=== PATIENT | male | born 1955 | race Caucasian/White ===

== ENCOUNTER 2016-07-24 18:16 | Emergency (ER) | payer OTHER ==
[2016-07-24 20:03] VITALS: BP 133/83
--- NOTE | 2016-07-24 21:09 | UC ---
Throat Pain/Nasal Norm HPI - HPI Summary HPI Summary: complaint of fever and body aching that started yesterday headache denies sore throat denies cough and nasal congestion denies N/V/D hasn't taken any medication for his symptoms - History of Current Complaint Chief Complaint: UCRespiratory Stated Complaint: HEADACHED, FEVER, BODY ACHES Time Seen by Provider: 07/24/16 20:33 Hx Obtained From: Patient - Allergies/Home Medications Allergies/Adverse Reactions: Allergies Allergy/AdvReac Type Severity Reaction Status Date / Time No Known Allergies Allergy Verified 07/24/16 20:03 Home Medications: Home Medications NK [No Home Medications Reported] 07/24/16 [History Confirmed 07/24/16] PMH/Surg Hx/FS Hx/Imm Hx Previously Healthy: Yes - Surgical History Surgical History: None - Family History Known Family History: Negative: Cardiac Disease, Hypertension, Diabetes - Social History Occupation: Retired Lives: With Family Alcohol Use: Occasionally Substance Use Type: None Smoking Status (MU): Never Smoked Tobacco - Immunization History Most Recent Influenza Vaccination: none Review of Systems Constitutional: Fever, Fatigue Skin: Negative Eyes: Negative ENT: Negative Respiratory: Negative Cardiovascular: Negative Gastrointestinal: Negative Genitourinary: Negative Motor: Negative Neurovascular: Negative Musculoskeletal: Myalgia Neurological: Headache Psychological: Negative All Other Systems Reviewed And Are Negative: Yes Physical Exam Triage Information Reviewed: Yes Appearance: No Pain Distress, Well-Nourished Vital Signs: Initial Vital Signs Temp 99.2 F 07/24/16 19:59 Pulse 109 07/24/16 19:59 Resp 18 07/24/16 19:59 BP 133/83 07/24/16 19:59 Pulse Ox 99 07/24/16 19:59 Vital Signs Reviewed: Yes Eyes: Positive: Conjunctiva Clear ENT: Positive: Pharyngeal erythema, Nasal congestion, TMs normal Neck: Positive: No Lymphadenopathy Respiratory: Positive: Lungs clear, Normal breath sounds, No respiratory distress Cardiovascular: Positive: RRR, No Murmur, Pulses Normal Abdomen Description: Positive: Nontender, No Organomegaly, Soft Bowel Sounds: Positive: Present Musculoskeletal: Positive: No Edema Neurological: Positive: Alert Psychological Exam: Normal Skin Exam: Normal Throat Pain/Nasal Course/Dx - Differential Dx/Diagnosis Differential Diagnosis/HQI/PQRI: Influenza, Other - influenzalikeillness Provider Diagnoses: viral syndrome - influenzalike illness Discharge - Discharge Plan Condition: Stable Disposition: HOME Patient Education Materials: Fever in Adults (ED) Referrals: [facility] [place] [facility] REFERRAL [Outside] Additional Instructions: Increase fluids and rest Take acetaminophen or ibuprofen for fever or pain Please review your discharge instructions. If your symptoms do not improve please call your primary care provider or return to urgent care. Your blood pressure is pre-hypertensive reading. Please contact your primary care provider within 1 day -4 weeks for further evaluation.
[2016-07-24] MEDS ORDERED: Ibuprofen TAB* 400 MG PO ONE (21:10)
== END 2016-07-24 21:33 | disposition home or self-care (01) ==
LOC: UCEAST 18:16
DX: B34.9 Viral infection, unspecified (principal); J11.1 Influenza due to unidentified influenza virus with other respiratory manifestations
CPT/HCPCS: 87502; 99202; A9270-GY; G0463

== ENCOUNTER 2016-07-25 08:55 | Emergency (ER) | payer OTHER ==
[2016-07-25 09:25] VITALS: BP 147/91
--- NOTE | 2016-07-26 17:23 | UC ---
Елена Gao Claudia, [facility] on 07/25/16 at 1030 . Skin Complaint HPI - HPI Summary HPI Summary: In Room Note: 60 year old male presents to the [facility] with right lower leg swelling and redness. Pt notes that he was here yesterday for URI and possible influenza since he had intermittent fever/chills this week. Pt woke up this am with erythematous right lower leg. Pt also notes that he had a scab on the medial aspect of the right lower leg that he was scratching since Friday and he thinks that he must have gotten an infection in the area. Pt notes that he did not state the scab to the MD yesterday because it was not painful and there was no redness. Pt denies NVD, and abd pain, but does admit to fever and chills on Friday. Pt denies any aggravating or alleviating factors. Pt notes that he has never had any skin infections in the past. Pt notes that he is leaving for Friday to go to [place], [place] and is only here on vacation. Pt denies any difficulty breathing or any pain to the lower leg or any new exposure to the leg that might cause an allergy. Pt denies any previous similar Sx in the past. PMHx: Psoriasis MD Note: Vital signs stable,temp 99.2F, BP 147/91 and Pulse 93. No Rx for HTN noted. Nurse's Note: pt states that he was here yesterday with a uri. pt states he had a small reddened area to rt lower leg. pt states that he woke up today and his rt lower leg is reddened and he is shivering. pt has a small scab noted to rt outer leg. pt states that it itches sometimes. - History of Current Complaint Chief Complaint: UCLowerExtremity Stated Complaint: RED SWOLLEN LOWER LEG Hx Obtained From: Patient Onset/Duration: Sudden Onset Location: Foot (Right) - RIGHT LOWER LEG Character: Swelling, Redness Aggravating: Nothing Alleviating: Nothing Associated Signs & Symptoms: Negative: Nausea, Vomiting - Allergy/Home Medications Allergies/Adverse Reactions: Allergies Allergy/AdvReac Type Severity Reaction Status Date / Time No Known Allergies Allergy Verified 07/25/16 12:20 Review of Systems Constitutional: Negative Skin: Other - right lower leg scattered erythema Eyes: Negative ENT: Negative Respiratory: Negative Cardiovascular: Negative Gastrointestinal: Negative, Other - NO NVD, ABD PAIN Genitourinary: Negative Motor: Negative Neurovascular: Negative Musculoskeletal: Negative Neurological: Negative Psychological: Negative All Other Systems Reviewed And Are Negative: Yes PMH/Surg Hx/FS Hx/Imm Hx Previously Healthy: Yes Cardiovascular History Of: Denies: Hypertension, Myocardial Infarction - Surgical History Surgical History: None - Family History Known Family History: Negative: Cardiac Disease, Hypertension, Diabetes - Social History Occupation: Employed Full-time Lives: With Family Alcohol Use: Occasionally Substance Use Type: None Smoking Status (MU): Never Smoked Tobacco - Immunization History Most Recent Influenza Vaccination: none Physical Exam Triage Information Reviewed: Yes Vital Signs: Initial Vital Signs Temp 99.2 F 07/25/16 09:21 Pulse 93 07/25/16 09:21 Resp 18 07/25/16 09:21 BP 147/91 07/25/16 09:21 Pulse Ox 98 07/25/16 09:21 Vital Signs Reviewed: Yes - Additional Comments Appearance: well-appearing, no pain distress, well-nourished Eyes: Conjunctiva clear ENT: Hearing grossly normal, pharynx normal, TMs normal, (-) muffled/hoarse voice Neck: Supple, no lymphadenopathy Resp: Chest non-tender, lungs clear, normal breath sounds, no respiratory distress Cardio: RRR, No murmur Abd: nontender, no organomegaly, soft Bowel: Present Musc: Strength intact, HUMMEL, RIGHT LE: ON THE RIGHT LOWER LEG THERE IS SCATTERED IRREGULAR ERYTHEMA THAT LOOKS PURPURIC, IT DOES NOT ADALID AND THERE IS A LINE OF INCREASED DARKNESS ALONG THE SOCK LINE THERE ARE TWO STREAKS TO THE POSTERIOR GASTROCNEMIUS THAT LOOK MORE TYPICAL OF CELLULITIS. THERE IS A 2.5CM OVAL SCALY LESION AT THE MEDIAL DISTAL LEG. COMPARED TO THE LEFT LEG THE RIGHT LEG IS NOT SWOLLEN BUT FEELS SLIGHTLY WARMER Neuro: Alert Psych: Age appropriate behavior Skin: (-) rashes Course/Dx - Course Course Of Treatment: 60 year old healthy white male with a remote history of ankylosing spondylitis who complaints of rash to right LE, rash appears to be purpura/ecchymosis. There is no clear etiology although patient mentoned scratching his psoriasis on his lower leg and possibly causiing a skin infection. No previous episode of cellulitis. I spoke to Dr. Romano at 1105 am and the pt will proceeed by car to the ED for further evaluation. Vital signs are stable. Slightly elevated temperature. Medications have been included in the original chart and reviewed. Patient is Urgent/Emergent. BP elevated due to current condition w/o HTN in PMH - Differential Diagnoses - Skin Complaint Differential Diagnoses: Cellulitis, Drug Rash, Other - purpuric rash, non- blanching, ? blood disorder/infection. - Diagnoses Provider Diagnoses: purpuric appearing rash, right LE unclear etiology Discharge - Discharge Plan Condition: Stable Disposition: TRANS [facility] Discharge Disposition Comment: transferred to [facility] ED for bloodwork and further evaluation Referrals: No Primary Care Phys,NOPCP [Primary Care Provider] - Additional Instructions: WE DISCUSSED: Your rash is not typical of an infection. It may have another cause and needs further evaluation in the ED. The documentation as recorded by the Елена damon Claudia accurately reflects the service I personally performed and the decisions made by me, Bobby Swann MD.
== END 2016-07-25 11:22 | disposition short-term general hospital (02) ==
LOC: UCEAST 08:55
DX: D69.2 Other nonthrombocytopenic purpura (principal)
CPT/HCPCS: 99212; G0463

== ENCOUNTER 2016-07-25 11:57 | Observation (INO) | payer OTHER ==
[2016-07-25] MEDS ORDERED: NS 0.9% 1000 ML* 1,000 ML IV ONE ×2 (12:45→15:30)
[2016-07-25] MEDS ORDERED: Piperac/Tazob 3.375 gm in NS* 3.375 GM/100 ML BAG IVPB ONE (12:47)
[2016-07-25 13:00] LABS: Hematocrit 49 % (42-52); Hemoglobin 16.4 g/dl (14.0-18.0); Mean Corpuscular HGB Conc 33 g/dl (31-36); Mean Corpuscular Hemoglobin 30 pg (27-31); Mean Corpuscular Volume 90 fL (80-94); Mean Platelet Volume 9 um3 (7.4-10.4); Red Blood Count 5.48 10^6/ul (4.0-5.4); Red Cell Distribution Width 13 % (10.5-15)
[2016-07-25 13:17] LABS: Albumin 4.2 g/dL (3.2-5.2); BUN/Creatinine Ratio 14.2 (8-20); C Reactive Protein 168.29 mg/L (< 5.00); Calcium 10.1 mg/dL (8.6-10.3); EGFR African American 79.4 (>60); EGFR Non-African American 61.8 (>60); Globulin 3.9 g/dL (2-4); Potassium 3.8 mmol/L (3.5-5.0); Total Bilirubin 0.8 mg/dL (0.2-1.0); Total Protein 8.1 g/dL (6.4-8.9)
[2016-07-25 13:31] LABS: Urine Bacteria Absent (Absent); Urine Bilirubin Negative (Negative); Urine Glucose Negative (Negative); Urine Nitrite Negative (Negative)
[2016-07-25 13:53] LABS: Erythrocyte Sed Rate 35 mm/Hr (0-20)
--- NOTE | 2016-07-25 14:02 | RAD ---
INDICATION: Pain and swelling. COMPARISON: None TECHNIQUE: Duplex interrogation of the Lowerextremity was performed. FINDINGS: Deep veins: There is a segment, nonocclusive thrombus in the right common femoral vein. The age is indeterminate. The great saphenous, profunda femoris, proximal, mid, and distal deep femoral, popliteal, posterior tibial, and peroneal veins are patent. There is normal compressibility, augmentation, and phasic flow. Superficial veins: There are no findings of superficial thrombophlebitis. Popliteal fossa:There is no evidence of a popliteal cyst. Soft tissues:There are no soft tissue abnormalities. IMPRESSION: Age indeterminate nonocclusive thrombus in the right common femoral vein
[2016-07-25] MEDS ORDERED: Rivaroxaban TAB(*) 15 MG PO ONE (14:27)
[2016-07-25] MEDS ORDERED: NS 0.9% 1000 ML* 2,000 ML IV ONE (15:27)
[2016-07-25] MEDS ORDERED: Rivaroxaban TAB(*) 15 MG PO SCH (15:30)
[2016-07-25] MEDS ORDERED: NS 0.9% 1000 ML* 1,000 ML IV SCH (15:30)
--- NOTE | 2016-07-25 15:34 | ADMNOTE ---
Subjective Date of Service: 07/25/16 Interval History: ADMISSION HISTORY AND PHYSICAL EXAM: Ambulatory Orders Medication Instructions Recorded NK [No Home Medications Reported] 07/24/16 Home Medications Medication Instructions Recorded Confirmed Type NK [No Home Medications Reported] 07/24/16 07/25/16 History HPI: The patient came by air from [place] to [place] (2 legs) 1 week ago and immediately drove by car to [place]. He is visiting his brother in [place] and is accompanied by his son. On 07/23 he developed fever and chills. This AM he noted redness of his R lower leg, sl swelling. No cough, SOB, chest pain. Family History: Findings - unremarkable Social History: Findings - . is his SDM. Never smoked, no alcohol abuse. Past Medical History: Findings - Psoriasis. Review of Systems - Measurements Intake and Output: Intake and Output Last 24 Hours 07/23/16 07/24/16 07/25/16 07/26/16 06:59 06:59 06:59 06:59 Intake Total 1100 Balance 1100 Weight 220 lb 7.396 oz Intake: IV Fluids 1100 - Review of Systems Constitutional Symptoms: Negative: Weight Gain, Weight Loss, Weakness, Fatigue, Fever, Night Sweats, Unexplained Falls, Other Dermatology: Positive: Normal HEENT: Positive: Normal Eyes: Positive: Normal Thyroid: Positive: Normal Pulmonary: Positive: Normal Cardiology: Positive: Normal Gastroenterology: Positive: Anorexia Genitourinary - Male: Negative: Prostatism, Erectile Dysfunction, Family Hx of Prostate Cancer, Other Musculoskeletal: Negative: Joint Pain, Joint Stiffness, Arthritis, Osteoporosis, Low Back Pain , Sciatica, Joint Deformities, Kyphoscoliosis, Other Endocrinology: Positive: Normal Hematologic/Lymphatic: Negative: Anemia, Easy Brusing, Hx Leukemia, Hx Lymphoma, Use of Anticoagulant, Use of Antiplatelet Drugs, Other Neurology: Positive: Normal Psychiatry: Positive: Normal Allergic/Immunologic: Negative: Hx Anaphylaxis, Hx Angioedema, Hx Environmental, Hx Seasonal, Athsma, Hx HIV, Immunocompromise, Swollen Glands LymphNodes, Other Objective Active Medications: Acetaminophen (Tylenol Tab*) 650 mg PO Q4H PRN PRN Reason: TEMP GREATER THAN 101.5 F Cefuroxime Sodium 750 mg/ (Sodium Chloride) 50 mls @ 100 mls/hr IVPB Q8H KATELYN Rivaroxaban (Xarelto(*)) 15 mg PO BID KATELYN Last Admin: 07/25/16 15:21 Dose: Not Given Vital Signs 07/25/16 07/25/16 07/25/16 12:02 12:11 12:16 Temperature 100.1 F 98.4 F Pulse Rate 101 99 Respiratory 20 16 Rate Blood Pressure 155/86 143/81 143/81 (mmHg) O2 Sat by Pulse 100 99 Oximetry 07/25/16 07/25/16 07/25/16 12:18 12:30 12:46 Temperature Pulse Rate 97 96 105 Respiratory Rate Blood Pressure 134/77 (mmHg) O2 Sat by Pulse 95 98 97 Oximetry 07/25/16 07/25/16 07/25/16 12:47 12:54 13:00 Temperature 102.9 F Pulse Rate 94 Respiratory Rate Blood Pressure 134/68 145/85 (mmHg) O2 Sat by Pulse 96 Oximetry 07/25/16 07/25/16 07/25/16 13:30 14:00 14:30 Temperature Pulse Rate 98 103 97 Respiratory Rate Blood Pressure 133/72 134/75 132/72 (mmHg) O2 Sat by Pulse 96 95 97 Oximetry Oxygen Devices in Use Now: None Appearance: Alert, sitting up on ED stretcher. In fair spirits. Looks comfortable. Eyes: No Scleral Icterus Ears/Nose/Mouth/Throat: Clear Oropharnyx, Mucous Membranes Moist Neck: NL Appearance and Movements; NL JVP, No Thyroid Enlargement, Masses Respiratory: Symmetrical Chest Expansion and Respiratory Effort, Clear to Auscultation, Clear to Percussion Cardiovascular: NL Sounds; No Murmurs; No JVD, RRR, No Edema, - Abdominal: NL Sounds; No Tenderness; No Distention, No Hepatosplenomegaly, - Extremities: No Clubbing, Cyanosis, - - 1+ edema R lower leg. No calf tenderness. Skin: No Nodules or Sclerosis, - - Small psoriatic area medial L lower leg just above ankle. Dark red patches covers 75% of R lower leg. The leg is very warm but so is the rest of his body. Neurological: Alert and Oriented x 3, NL Sensation Result Diagrams: 07/25/16 12:20 07/25/16 12:20 Assess/Plan/Problems-Billing Assessment: - Patient Problems (1) DVT (deep venous thrombosis) Current Visit: Yes Status: Acute Code(s): I82.409 - ACUTE EMBOLISM AND THOMBOS UNSP DEEP VN UNSP LOWER EXTREMITY SNOMED Code(s): 968852257 Comment: In setting of prolonged air/car travel would consider this an acute DVT. Rivaroxaban started. (2) Cellulitis Current Visit: Yes Status: Acute Code(s): L03.90 - CELLULITIS, UNSPECIFIED SNOMED Code(s): 007122385 Comment: Non-blanching deep red rash. He could have developed cellulitis via the psoriatic patch R lower leg. IV cefuroxime ordered. He received pip/ billie in the ED. (3) Psoriasis Current Visit: Yes Status: Acute Code(s): L40.9 - PSORIASIS, UNSPECIFIED SNOMED Code(s): 9967745 Comment: Mild, no tx needed at present.
[2016-07-25] MEDS: Acetaminophen TAB* 325 MG PO PRN ×2 (16:47→23:56)
[2016-07-25] MEDS: ceFUROXime IV(*) 750 MG in NS 0.9% 50 ML* 50 ML IVPB SCH ×2 (16:47→23:56)
[2016-07-25] MEDS: NS 0.9% 1000 ML* 1,000 ML IV SCH (17:32)
[2016-07-25] MEDS: oxyCODONE TAB* 5 MG TAB PO PRN ×2 (17:51→23:56)
--- NOTE | 2016-07-25 18:33 | ED ---
Polly Gao Matthew, scribed for Bob Romano MD on 07/25/16 at 1318 . Lower Extremity - HPI Summary HPI Summary: A 60 y/o male presents to the ED with right lower leg swelling and redness since a week ago. The patient was transferred from [facility]. Associated symptoms include chills, fever, headache, right lower leg swelling, and rash on the right leg. No PMHx, No SHx, no smoking, no drugs, and occasional alcohol. - History of Current Complaint Chief Complaint: EDExtremityLower Stated Complaint: INFECTION RIGHT LEG Time Seen by Provider: 07/25/16 12:31 Hx Obtained From: Patient Onset/Duration: Weeks Severity Initially: Moderate Severity Currently: Moderate Pain Intensity: 7 Pain Scale Used: 0-10 Numeric Timing: Constant Associated Signs And Symptoms: Positive: Swelling - RLE, Redness - RLE, Fever, Other - Chills Able to Bear Weight: Yes - Allergies/Home Medications Allergies/Adverse Reactions: Allergies Allergy/AdvReac Type Severity Reaction Status Date / Time No Known Allergies Allergy Verified 07/25/16 12:20 PMH/Surg Hx/FS Hx/Imm Hx Previously Healthy: Yes Endocrine/Hematology History: Denies: Hx Diabetes Cardiovascular History: Denies: Hx Hypertension Infectious Disease History: No Infectious Disease History: Denies: Traveled Outside the [place] in Last 30 Days - Family History Known Family History: Negative: Cardiac Disease, Hypertension, Diabetes - Social History Alcohol Use: Occasionally Substance Use Type: Reports: None Smoking Status (MU): Never Smoked Tobacco Review of Systems Positive: Fever, Chills Eyes: Negative ENT: Negative Cardiovascular: Negative Respiratory: Negative Gastrointestinal: Negative Genitourinary: Negative Positive: Edema - RLE Skin: Other - Redness of the RLE Positive: Rash - RLE Positive: Headache Psychological: Normal All Other Systems Reviewed And Are Negative: Yes Physical Exam - Summary Physical Exam Summary: VITAL SIGNS: Reviewed. GENERAL: Patient is a well developed and nourished male who is lying comfortable in the stretcher. Patient is not in any acute respiratory distress. HEAD AND FACE: No signs of trauma. No ecchymosis, hematomas or skull depressions. No sinus tenderness. EYES: PERRLA, EOMI x 2, No injected conjunctiva, no nystagmus. EARS: Hearing grossly intact. Ear canals and tympanic membranes are within normal limits. MOUTH: Oropharynx within normal limits. NECK: Supple, trachea is midline, no adenopathy, no JVD, no carotid bruit, no c- spine tenderness, neck with full ROM. CHEST: Symmetric, no tenderness at palpation LUNGS: Clear to auscultation bilaterally. No wheezing or crackles. CVS: Regular rate and rhythm, S1 and S2 present, no murmurs or gallops appreciated. ABDOMEN: Soft, non-tender. No signs of distention. No rebound no guarding, and no masses palpated. Bowel sounds are normal. EXTREMITIES: FROM in all major joints, Positive right LE erythema with areas of ecchymosis. Positive tacking of erythema extending to the right proximal thigh. Positive tenderness at palpation. NEURO: Alert and oriented x 3. No acute neurological deficits. Speech is normal and follows commands. SKIN: Dry and warm Triage Information Reviewed: Yes Vital Signs On Initial Exam: Initial Vitals Temp Pulse Resp BP Pulse Ox 100.1 F 101 20 155/86 100 07/25/16 12:02 07/25/16 12:02 07/25/16 12:02 07/25/16 12:02 07/25/16 12:02 Vital Signs Reviewed: Yes - [place] Coma Scale Coma Scale Total: 15 Diagnostics - Vital Signs Vital Signs Temp Pulse Resp BP Pulse Ox 07/25/16 12:18 97 95 07/25/16 12:16 143/81 07/25/16 12:11 98.4 F 99 16 143/81 99 07/25/16 12:02 100.1 F 101 20 155/86 100 - Laboratory Lab Results: Lab Results 07/25/16 07/25/16 07/25/16 Range/Units 12:20 12:20 12:20 WBC 17.0 H (3.5-10.8) 10^3/ul RBC 5.48 H (4.0-5.4) 10^6/ul Hgb 16.4 (14.0-18.0) g/dl Hct 49 (42-52) % MCV 90 (80-94) fL MCH 30 (27-31) pg MCHC 33 (31-36) g/dl RDW 13 (10.5-15) % Plt Count 171 (150-450) 10^3/ul MPV 9 (7.4-10.4) um3 Neut % (Auto) 88.7 H (38-83) % Lymph % (Auto) 4.1 L (25-47) % [place] % (Auto) 7.1 (1-9) % Eos % (Auto) 0 (0-6) % Baso % (Auto) 0.1 (0-2) % Absolute Neuts (auto) 15.0 H (1.5-7.7) 10^3/ul Absolute Lymphs (auto) 0.7 L (1.0-4.8) 10^3/ul Absolute Monos (auto) 1.2 H (0-0.8) 10^3/ul Absolute Eos (auto) 0 (0-0.6) 10^3/ul Absolute Basos (auto) 0 (0-0.2) 10^3/ul Absolute Nucleated RBC 0.01 10^3/ul Nucleated RBC % 0 ESR 35 H (0-20) mm/Hr Sodium 132 L (133-145) mmol/L Potassium 3.8 (3.5-5.0) mmol/L Chloride 98 L (101-111) mmol/L Carbon Dioxide 26 (22-32) mmol/L Anion Gap 8 (2-11) mmol/L BUN 17 (6-24) mg/dL Creatinine 1.20 H (0.67-1.17) mg/dL Est GFR ( Amer) 79.4 (>60) Est GFR (Non-Af Amer) 61.8 (>60) BUN/Creatinine Ratio 14.2 (8-20) Glucose 114 H (70-100) mg/dL Lactic Acid 1.6 (0.5-2.0) mmol/L Calcium 10.1 (8.6-10.3) mg/dL Total Bilirubin 0.80 (0.2-1.0) mg/dL AST 18 (13-39) U/L ALT 16 (7-52) U/L Alkaline Phosphatase 64 (34-104) U/L C-Reactive Protein 168.29 H (< 5.00) mg/L Total Protein 8.1 (6.4-8.9) g/dL Albumin 4.2 (3.2-5.2) g/dL Globulin 3.9 (2-4) g/dL Albumin/Globulin Ratio 1.1 (1-3) Urine Color Urine Appearance Urine pH (5-9) Ur Specific [place] (1.010-1.030) Urine Protein (Negative) Urine Ketones (Negative) Urine Blood (Negative) Urine Nitrate (Negative) Urine Bilirubin (Negative) Urine Urobilinogen (Negative) Ur Leukocyte Esterase (Negative) Urine WBC (Auto) (Absent) Urine RBC (Auto) (Absent) Urine Bacteria (Absent) Urine Glucose (Negative) 07/25/16 Range/Units 12:54 WBC (3.5-10.8) 10^3/ul RBC (4.0-5.4) 10^6/ul Hgb (14.0-18.0) g/dl Hct (42-52) % MCV (80-94) fL MCH (27-31) pg MCHC (31-36) g/dl RDW (10.5-15) % Plt Count (150-450) 10^3/ul MPV (7.4-10.4) um3 Neut % (Auto) (38-83) % Lymph % (Auto) (25-47) % [place] % (Auto) (1-9) % Eos % (Auto) (0-6) % Baso % (Auto) (0-2) % Absolute Neuts (auto) (1.5-7.7) 10^3/ul Absolute Lymphs (auto) (1.0-4.8) 10^3/ul Absolute Monos (auto) (0-0.8) 10^3/ul Absolute Eos (auto) (0-0.6) 10^3/ul Absolute Basos (auto) (0-0.2) 10^3/ul Absolute Nucleated RBC 10^3/ul Nucleated RBC % ESR (0-20) mm/Hr Sodium (133-145) mmol/L Potassium (3.5-5.0) mmol/L Chloride (101-111) mmol/L Carbon Dioxide (22-32) mmol/L Anion Gap (2-11) mmol/L BUN (6-24) mg/dL Creatinine (0.67-1.17) mg/dL Est GFR ( Amer) (>60) Est GFR (Non-Af Amer) (>60) BUN/Creatinine Ratio (8-20) Glucose (70-100) mg/dL Lactic Acid (0.5-2.0) mmol/L Calcium (8.6-10.3) mg/dL Total Bilirubin (0.2-1.0) mg/dL AST (13-39) U/L ALT (7-52) U/L Alkaline Phosphatase (34-104) U/L C-Reactive Protein (< 5.00) mg/L Total Protein (6.4-8.9) g/dL Albumin (3.2-5.2) g/dL Globulin (2-4) g/dL Albumin/Globulin Ratio (1-3) Urine Color Yellow Urine Appearance Cloudy Urine pH 6.0 (5-9) Ur Specific [place] 1.014 (1.010-1.030) Urine Protein 1+(30 mg/dl) H (Negative) Urine Ketones 1+ H (Negative) Urine Blood 1+ H (Negative) Urine Nitrate Negative (Negative) Urine Bilirubin Negative (Negative) Urine Urobilinogen Negative (Negative) Ur Leukocyte Esterase Negative (Negative) Urine WBC (Auto) Trace(0-5/hpf) (Absent) Urine RBC (Auto) Trace(0-2/hpf) (Absent) Urine Bacteria Absent (Absent) Urine Glucose Negative (Negative) Result Diagrams: 07/25/16 12:20 07/25/16 12:20 Lab Statement: Any lab studies that have been ordered have been reviewed, and results considered in the medical decision making process. - Ultrasound No standard instances Ultrasound Interpretation: Positive (See Comments) - IMPRESSION: Age indeterminate nonocclusive thrombus in the right common femoral vein Ultrasound Interpretation Completed By: Radiologist Lower Extremity Course/Dx - Course Assessment/Plan: A 60 y/o male presents to the ED with right lower leg swelling and redness since a week ago. The patient was transferred from [facility]. Associated symptoms include chills, fever, headache, right lower leg swelling, and rash on the right leg. No PMHx, No SHx, no smoking, no drugs, and occasional alcohol. Blood shows WBC of 17 without bands. ESR is 35. Sodium 132, chloride is 98 creatinine is 1.20, glucose 114, c-reactive protein is 168. Urinalaysis shows 1 + ketones. US of the RLE shows a possible DVT. In the ED course, the patient was given IV fluids since the patient was dehydrated, Tylenol for fever, and Zoysn for right lower extremity cellulitis. The patient was also started on xarelto for the DVT. At this point, I discussed the case with Dr. Goodson who accepted the patient for admission. The patient is hemodynamically stable and A& Ox3. - Diagnoses Differential Diagnosis/HQI/PQRI: Positive: Bursitis, Cellulitis, Contusion, DVT , Phlebitis Provider Diagnoses: Cellulitis, DVT (deep venous thrombosis) - Physician Notifications Discussed Care of Patient With: Dr. Goodson (Hosptialist) at 14:30 -- Notified of patient's history and will admit the patinet. Discharge - Discharge Plan Condition: Stable Disposition: ADMITTED TO [facility] The documentation as recorded by the Polly damon Matthew accurately reflects the service I personally performed and the decisions made by me, Bob Romano MD.
[2016-07-25] MEDS: Rivaroxaban TAB(*) 15 MG PO SCH (21:46)
[2016-07-26] MEDS ORDERED: Ibuprofen TAB* 400 MG PO PRN (00:28)
--- NOTE | 2016-07-26 08:47 | PN ---
Subjective Date of Service: 07/26/16 Interval History: Pain R lower leg worse today. Still a little dizzy when he walks. No more sweats or chills. Family History: Findings - unremarkable Social History: Findings - . is his SDM. Never smoked, no alcohol abuse. Past Medical History: Findings - Psoriasis. Objective Active Medications: Acetaminophen (Tylenol Tab*) 650 mg PO Q4H PRN PRN Reason: TEMP GREATER THAN 101.5 F Last Admin: 07/25/16 23:56 Dose: 650 mg Cefuroxime Sodium 750 mg/ (Sodium Chloride) 50 mls @ 100 mls/hr IVPB Q8H [facility] Last Admin: 07/25/16 23:56 Dose: 100 mls/hr Sodium Chloride (Ns 0.9% 1000 Ml*) 1,000 mls @ 100 mls/hr IV PER RATE [facility] Last Admin: 07/25/16 17:32 Dose: 100 mls/hr Ibuprofen (Motrin Tab*) 400 mg PO Q6H PRN PRN Reason: FEVER/PAIN Oxycodone HCl (Roxycodone Tab*) 5 mg PO Q3H PRN PRN Reason: PAIN - MODERATE TO SEVERE Last Admin: 07/25/16 23:56 Dose: 5 mg Rivaroxaban (Xarelto(*)) 15 mg PO BID [facility] Last Admin: 07/25/16 21:46 Dose: 15 mg Vital Signs 07/25/16 07/25/16 07/25/16 15:00 15:37 15:57 Temperature 101.7 F Pulse Rate 103 103 103 Respiratory 18 Rate Blood Pressure 130/81 141/84 141/84 (mmHg) O2 Sat by Pulse 97 97 Oximetry 07/25/16 07/25/16 07/25/16 16:10 17:51 19:32 Temperature 100.2 F Pulse Rate 102 Respiratory 22 22 20 Rate Blood Pressure 138/59 (mmHg) O2 Sat by Pulse 97 Oximetry 07/25/16 07/25/16 07/26/16 23:50 23:56 01:30 Temperature 99.7 F Pulse Rate 100 Respiratory 16 16 Rate Blood Pressure 132/66 (mmHg) O2 Sat by Pulse 95 Oximetry 07/26/16 07/26/16 07/26/16 01:56 04:04 08:01 Temperature 100.1 F 100.1 F Pulse Rate 85 89 Respiratory 15 16 18 Rate Blood Pressure 141/62 113/54 (mmHg) O2 Sat by Pulse 96 97 Oximetry Oxygen Devices in Use Now: None Appearance: Supine in bed, alert. Looks uncomfortable. Eyes: No Scleral Icterus Extremities: No Clubbing, Cyanosis, - - 1-2+ edema R lower leg, about the same as yesterday. Red areas confined to inked margins, less red more brown today. Strong R DP pulse. Neurological: Alert and Oriented x 3, NL Sensation Result Diagrams: 07/25/16 12:20 07/25/16 12:20 Additional Lab and Data: Lab Results 07/25/16 07/25/16 07/25/16 Range/Units 12:20 12:20 12:20 WBC 17.0 H (3.5-10.8) 10^3/ul RBC 5.48 H (4.0-5.4) 10^6/ul Hgb 16.4 (14.0-18.0) g/dl Hct 49 (42-52) % MCV 90 (80-94) fL MCH 30 (27-31) pg MCHC 33 (31-36) g/dl RDW 13 (10.5-15) % Plt Count 171 (150-450) 10^3/ul MPV 9 (7.4-10.4) um3 Neut % (Auto) 88.7 H (38-83) % Lymph % (Auto) 4.1 L (25-47) % [place] % (Auto) 7.1 (1-9) % Eos % (Auto) 0 (0-6) % Baso % (Auto) 0.1 (0-2) % Absolute Neuts (auto) 15.0 H (1.5-7.7) 10^3/ul Absolute Lymphs (auto) 0.7 L (1.0-4.8) 10^3/ul Absolute Monos (auto) 1.2 H (0-0.8) 10^3/ul Absolute Eos (auto) 0 (0-0.6) 10^3/ul Absolute Basos (auto) 0 (0-0.2) 10^3/ul Absolute Nucleated RBC 0.01 10^3/ul Nucleated RBC % 0 ESR 35 H (0-20) mm/Hr Sodium 132 L (133-145) mmol/L Potassium 3.8 (3.5-5.0) mmol/L Chloride 98 L (101-111) mmol/L Carbon Dioxide 26 (22-32) mmol/L Anion Gap 8 (2-11) mmol/L BUN 17 (6-24) mg/dL Creatinine 1.20 H (0.67-1.17) mg/dL Est GFR ( Amer) 79.4 (>60) Est GFR (Non-Af Amer) 61.8 (>60) BUN/Creatinine Ratio 14.2 (8-20) Glucose 114 H (70-100) mg/dL Lactic Acid 1.6 (0.5-2.0) mmol/L Calcium 10.1 (8.6-10.3) mg/dL Total Bilirubin 0.80 (0.2-1.0) mg/dL AST 18 (13-39) U/L ALT 16 (7-52) U/L Alkaline Phosphatase 64 (34-104) U/L C-Reactive Protein 168.29 H (< 5.00) mg/L Total Protein 8.1 (6.4-8.9) g/dL Albumin 4.2 (3.2-5.2) g/dL Globulin 3.9 (2-4) g/dL Albumin/Globulin Ratio 1.1 (1-3) Urine Color Urine Appearance Urine pH (5-9) Ur Specific [place] (1.010-1.030) Urine Protein (Negative) Urine Ketones (Negative) Urine Blood (Negative) Urine Nitrate (Negative) Urine Bilirubin (Negative) Urine Urobilinogen (Negative) Ur Leukocyte Esterase (Negative) Urine WBC (Auto) (Absent) Urine RBC (Auto) (Absent) Urine Bacteria (Absent) Urine Glucose (Negative) 07/25/16 Range/Units 12:54 WBC (3.5-10.8) 10^3/ul RBC (4.0-5.4) 10^6/ul Hgb (14.0-18.0) g/dl Hct (42-52) % MCV (80-94) fL MCH (27-31) pg MCHC (31-36) g/dl RDW (10.5-15) % Plt Count (150-450) 10^3/ul MPV (7.4-10.4) um3 Neut % (Auto) (38-83) % Lymph % (Auto) (25-47) % [place] % (Auto) (1-9) % Eos % (Auto) (0-6) % Baso % (Auto) (0-2) % Absolute Neuts (auto) (1.5-7.7) 10^3/ul Absolute Lymphs (auto) (1.0-4.8) 10^3/ul Absolute Monos (auto) (0-0.8) 10^3/ul Absolute Eos (auto) (0-0.6) 10^3/ul Absolute Basos (auto) (0-0.2) 10^3/ul Absolute Nucleated RBC 10^3/ul Nucleated RBC % ESR (0-20) mm/Hr Sodium (133-145) mmol/L Potassium (3.5-5.0) mmol/L Chloride (101-111) mmol/L Carbon Dioxide (22-32) mmol/L Anion Gap (2-11) mmol/L BUN (6-24) mg/dL Creatinine (0.67-1.17) mg/dL Est GFR ( Amer) (>60) Est GFR (Non-Af Amer) (>60) BUN/Creatinine Ratio (8-20) Glucose (70-100) mg/dL Lactic Acid (0.5-2.0) mmol/L Calcium (8.6-10.3) mg/dL Total Bilirubin (0.2-1.0) mg/dL AST (13-39) U/L ALT (7-52) U/L Alkaline Phosphatase (34-104) U/L C-Reactive Protein (< 5.00) mg/L Total Protein (6.4-8.9) g/dL Albumin (3.2-5.2) g/dL Globulin (2-4) g/dL Albumin/Globulin Ratio (1-3) Urine Color Yellow Urine Appearance Cloudy Urine pH 6.0 (5-9) Ur Specific [place] 1.014 (1.010-1.030) Urine Protein 1+(30 mg/dl) H (Negative) Urine Ketones 1+ H (Negative) Urine Blood 1+ H (Negative) Urine Nitrate Negative (Negative) Urine Bilirubin Negative (Negative) Urine Urobilinogen Negative (Negative) Ur Leukocyte Esterase Negative (Negative) Urine WBC (Auto) Trace(0-5/hpf) (Absent) Urine RBC (Auto) Trace(0-2/hpf) (Absent) Urine Bacteria Absent (Absent) Urine Glucose Negative (Negative) Assess/Plan/Problems-Billing Assessment: - Patient Problems (1) DVT (deep venous thrombosis) Current Visit: Yes Status: Acute Code(s): I82.409 - ACUTE EMBOLISM AND THOMBOS UNSP DEEP VN UNSP LOWER EXTREMITY SNOMED Code(s): 169205112 Comment: In setting of prolonged air/car travel would consider this an acute DVT. Continue rivaroxaban. (2) Cellulitis Current Visit: Yes Status: Acute Code(s): L03.90 - CELLULITIS, UNSPECIFIED SNOMED Code(s): 447299126 Comment: Non-blanching deep red rash. He could have developed cellulitis via the psoriatic patch R lower leg. IV cefuroxime ordered. He received pip/ billie in the ED. Visually somewhat better 07/26, no extension, color less red more brown. More tender. Strong DP pulse. ANCA, RYLIE, hep B&C, HIV Ab ordered. Start prednisone in addition to cefuroxime. Discussed with Dr. Gay 07/26. (3) Psoriasis Current Visit: Yes Status: Acute Code(s): L40.9 - PSORIASIS, UNSPECIFIED SNOMED Code(s): 2291075 Comment: Mild, no tx needed at present.
[2016-07-26] MEDS: ceFUROXime IV(*) 750 MG in NS 0.9% 50 ML* 50 ML IVPB SCH ×2 (08:49→17:16)
[2016-07-26] MEDS: oxyCODONE TAB* 5 MG TAB PO PRN (08:50)
[2016-07-26] MEDS: Rivaroxaban TAB(*) 15 MG PO SCH ×2 (08:50→21:09)
[2016-07-26 09:29] LABS: Hematocrit 43 % (42-52); Hemoglobin 14.5 g/dl (14.0-18.0); Mean Corpuscular HGB Conc 34 g/dl (31-36); Mean Corpuscular Hemoglobin 31 pg (27-31); Mean Corpuscular Volume 90 fL (80-94); Mean Platelet Volume 9 um3 (7.4-10.4); Red Blood Count 4.74 10^6/ul (4.0-5.4); Red Cell Distribution Width 13 % (10.5-15); White Blood Count 12.8 10^3/ul (3.5-10.8)
--- NOTE | 2016-07-26 09:29 | PN ---
Progress Note - Progress Note Note: Time spent on patient care 50 minutes.
[2016-07-26 09:47] LABS: Calcium 8.6 mg/dL (8.6-10.3); EGFR Non-African American 76.2 (>60); Potassium 3.6 mmol/L (3.5-5.0)
[2016-07-26] MEDS: NS 0.9% 1000 ML* 1,000 ML IV SCH ×3 (09:54→21:09)
[2016-07-26] MEDS: predniSONE TAB* 10 MG PO SCH (10:21)
--- NOTE | 2016-07-26 10:34 | RAD ---
INDICATION: Diffuse cellulitis. Evaluate for abscess. COMPARISON: Venous duplex examination July 25, 2016 TECHNIQUE: Transverse and longitudinal scans of the right lower extremity were performed utilizing grayscale and color Doppler imaging. FINDINGS: There is diffuse edematous change about the lower extremity at the level of the mid and distal calf consistent with clinical history of cellulitis. There is no localized abscess IMPRESSION: SOFT TISSUE EDEMA AT THE LEVEL THE CALF BUT NO EVIDENCE OF FOCAL FLUID COLLECTION TO SUGGEST ABSCESS.
--- NOTE | 2016-07-26 12:51 | CONS ---
CONSULTATION REPORT: DATE OF CONSULT: 07/26/16 REQUESTING PHYSICIAN: Dr. Hobbs CONSULTING SERVICE: Infectious Disease. REASON FOR CONSULTATION: Right leg rash and DVT. IMPRESSION: Nonblanching erythematous patchy rash, right lower extremity, which appears consistent with a small vessel vasculitis, it is unilateral and he does have psoriasis plaque adjacent to that area raising the question of atypical presentation of a bacterial cellulitis. DIFFERENTIAL DIAGNOSES: Includes: 1. Systemic cause of vasculitis which includes hepatitis B, hepatitis C, HIV, ANCA or RYLIE associate d. He does have a right lower extremity clot, which raises the question that it is related to throm bosis. 2. Fever, anorexia and leukocytosis related to problem #1. 3. CRP of 170. RECOMMENDATION: I agree with cephalosporin, given worsening pain, I think a corticosteroid is reaso nable. We will check HIV, hepatitis B, surface antigen, hepatitis C antibody, ANCA, RYLIE. HISTORY OF PRESENT ILLNESS: This is a 60-year-old man who recently flew here from [facility], had a ca r ride from [place]. On Friday, he developed right leg pain and swelling. He had been here a few days. He has been visiting an uncle here. No time outdoors. Because of the leg pain, he came to [facility] ER. He knows he had been anorexic since that time and was noted to have a fever of 102. An ultr asound of the right leg showed nonocclusive thrombus in the right common femoral vein. He was start ed on anticoagulation. He does have small plaques with psoriasis and he noted he was itching one on his right ankle more than the left in the 2 to 3 days before he came to the hospital. The rash dev eloped about the same time as the swelling. When he got here, his white count was 17,000. He was s tarted on Zosyn and switched to cefuroxime. Today, he has more swelling and the pain in the leg is about the same. It is not worse with weightbearing. It is worse with touching the area of the rash . He has never had anything like this before and his left leg has been fine. PAST MEDICAL HISTORY: None. MEDICATIONS: 1. Tylenol. 2. Cefuroxime. 3. Rivaroxaban. 4. Oxycodone. FAMILY HISTORY: No recurrent infections. SOCIAL HISTORY: He lives in [facility]. 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 No new partners. He is , traveling here with his son. REVIEW OF SYSTEMS: All negative except as noted above. PHYSICAL EXAM: Vital Signs: Temperature is 37.8, heart rate 80, respiratory rate 18, blood pressur e 113/54, O2 sat 97% on room air. In general, he is awake, not in distress. Neurologic: He is gisella ented x3. He follows commands. He moves all extremities. HEENT: There is no conjunctival hemorrh age. Oropharynx without lesions. Neck is supple without nuchal rigidity. Lymph Nodes: There is n o cervical, supraclavicular, inguinal, axillary, or epitrochlear lymphadenopathy. Heart is regular r ate and rhythm without murmurs, rubs, or gallops. Lungs are clear to auscultation bilaterally. Abd omen is soft, nontender, and nondistended. Skin: In the right lower extremity, there is diffuse lynne ma from the thigh down to the ankle. There is 2+ dorsalis pedis pulse. There is patchy erythema, v iolaceous rash between the mid calf and ankle circumferential. Some areas are dark or purple. It i s all nonblanching and tender. It is nonpalpable. DIAGNOSTIC STUDIES/LAB DATA: White blood cell count 17, hemoglobin 16, platelets 171. Creatinine 1 .2, CRP 170, lactic acid 1. Please see impressions and recommendations outlined above, which I discussed with Dr. Hobbs. Thank you for asking me to see Mr. Hearn in consultation. [id number]/[facility] #: [id number]
[2016-07-27] MEDS: ceFUROXime IV(*) 750 MG in NS 0.9% 50 ML* 50 ML IVPB SCH ×2 (00:14→08:43)
--- NOTE | 2016-07-27 08:40 | DCNOTE ---
Subjective Date of Service: 07/27/16 Interval History: Pain R leg much better, not using any analgesic. Walks OK. No sweats, chills. Appetite good. No new c/o. Family History: Findings - unremarkable Social History: Findings - . is his SDM. Never smoked, no alcohol abuse. Past Medical History: Findings - Psoriasis. Objective Active Medications: Acetaminophen (Tylenol Tab*) 650 mg PO Q4H PRN PRN Reason: TEMP GREATER THAN 101.5 F Last Admin: 07/25/16 23:56 Dose: 650 mg Cefuroxime Sodium 750 mg/ (Sodium Chloride) 50 mls @ 100 mls/hr IVPB Q8H [facility] Last Admin: 07/27/16 00:14 Dose: 100 mls/hr Sodium Chloride (Ns 0.9% 1000 Ml*) 1,000 mls @ 100 mls/hr IV PER RATE [facility] Last Admin: 07/26/16 21:09 Dose: 100 mls/hr Ibuprofen (Motrin Tab*) 400 mg PO Q6H PRN PRN Reason: FEVER/PAIN Oxycodone HCl (Roxycodone Tab*) 5 mg PO Q3H PRN PRN Reason: PAIN - MODERATE TO SEVERE Last Admin: 07/26/16 08:50 Dose: 5 mg Prednisone (Deltasone Tab*) 60 mg PO DAILY [facility] Last Admin: 07/26/16 10:21 Dose: 60 mg Rivaroxaban (Xarelto(*)) 15 mg PO BID [facility] Last Admin: 07/26/16 21:09 Dose: 15 mg Vital Signs 07/26/16 07/26/16 07/26/16 08:50 10:00 12:51 Temperature 99.6 F Pulse Rate 92 Respiratory 16 16 Rate Blood Pressure 139/72 (mmHg) O2 Sat by Pulse 98 Oximetry 07/26/16 07/26/16 07/26/16 19:49 20:00 21:13 Temperature 98.8 F Pulse Rate 84 Respiratory 16 20 20 Rate Blood Pressure 123/73 (mmHg) O2 Sat by Pulse 96 Oximetry 07/26/16 07/27/16 23:13 03:16 Temperature 97.9 F 98.3 F Pulse Rate 84 85 Respiratory 16 16 Rate Blood Pressure 105/55 123/80 (mmHg) O2 Sat by Pulse 98 96 Oximetry Oxygen Devices in Use Now: None Appearance: Alert, sitting on the edge of the bed. In good spirits. Looks comfortable . Eyes: No Scleral Icterus Extremities: No Clubbing, Cyanosis, - - Tr edema R leg. R leg no longer warmer than L leg. Skin: No Rash or Ulcers - Red areas slowly improving. Black area R lateral/ posterior leg just above the ankle about the same as yesterday. New black area with 2-3 cm [id number] fluid collection R lower leg medial just below knee. No tenderness. , No Nodules or Sclerosis Result Diagrams: 07/26/16 09:05 07/26/16 09:05 Additional Lab and Data: Lab Results 07/25/16 07/25/16 07/25/16 Range/Units 12:20 12:20 12:20 WBC 17.0 H (3.5-10.8) 10^3/ul RBC 5.48 H (4.0-5.4) 10^6/ul Hgb 16.4 (14.0-18.0) g/dl Hct 49 (42-52) % MCV 90 (80-94) fL MCH 30 (27-31) pg MCHC 33 (31-36) g/dl RDW 13 (10.5-15) % Plt Count 171 (150-450) 10^3/ul MPV 9 (7.4-10.4) um3 Neut % (Auto) 88.7 H (38-83) % Lymph % (Auto) 4.1 L (25-47) % [place] % (Auto) 7.1 (1-9) % Eos % (Auto) 0 (0-6) % Baso % (Auto) 0.1 (0-2) % Absolute Neuts (auto) 15.0 H (1.5-7.7) 10^3/ul Absolute Lymphs (auto) 0.7 L (1.0-4.8) 10^3/ul Absolute Monos (auto) 1.2 H (0-0.8) 10^3/ul Absolute Eos (auto) 0 (0-0.6) 10^3/ul Absolute Basos (auto) 0 (0-0.2) 10^3/ul Absolute Nucleated RBC 0.01 10^3/ul Nucleated RBC % 0 ESR 35 H (0-20) mm/Hr Sodium 132 L (133-145) mmol/L Potassium 3.8 (3.5-5.0) mmol/L Chloride 98 L (101-111) mmol/L Carbon Dioxide 26 (22-32) mmol/L Anion Gap 8 (2-11) mmol/L BUN 17 (6-24) mg/dL Creatinine 1.20 H (0.67-1.17) mg/dL Est GFR ( Amer) 79.4 (>60) Est GFR (Non-Af Amer) 61.8 (>60) BUN/Creatinine Ratio 14.2 (8-20) Glucose 114 H (70-100) mg/dL Lactic Acid 1.6 (0.5-2.0) mmol/L Calcium 10.1 (8.6-10.3) mg/dL Total Bilirubin 0.80 (0.2-1.0) mg/dL AST 18 (13-39) U/L ALT 16 (7-52) U/L Alkaline Phosphatase 64 (34-104) U/L C-Reactive Protein 168.29 H (< 5.00) mg/L Total Protein 8.1 (6.4-8.9) g/dL Albumin 4.2 (3.2-5.2) g/dL Globulin 3.9 (2-4) g/dL Albumin/Globulin Ratio 1.1 (1-3) Urine Color Urine Appearance Urine pH (5-9) Ur Specific [place] (1.010-1.030) Urine Protein (Negative) Urine Ketones (Negative) Urine Blood (Negative) Urine Nitrate (Negative) Urine Bilirubin (Negative) Urine Urobilinogen (Negative) Ur Leukocyte Esterase (Negative) Urine WBC (Auto) (Absent) Urine RBC (Auto) (Absent) Urine Bacteria (Absent) Urine Glucose (Negative) 07/25/16 Range/Units 12:54 WBC (3.5-10.8) 10^3/ul RBC (4.0-5.4) 10^6/ul Hgb (14.0-18.0) g/dl Hct (42-52) % MCV (80-94) fL MCH (27-31) pg MCHC (31-36) g/dl RDW (10.5-15) % Plt Count (150-450) 10^3/ul MPV (7.4-10.4) um3 Neut % (Auto) (38-83) % Lymph % (Auto) (25-47) % [place] % (Auto) (1-9) % Eos % (Auto) (0-6) % Baso % (Auto) (0-2) % Absolute Neuts (auto) (1.5-7.7) 10^3/ul Absolute Lymphs (auto) (1.0-4.8) 10^3/ul Absolute Monos (auto) (0-0.8) 10^3/ul Absolute Eos (auto) (0-0.6) 10^3/ul Absolute Basos (auto) (0-0.2) 10^3/ul Absolute Nucleated RBC 10^3/ul Nucleated RBC % ESR (0-20) mm/Hr Sodium (133-145) mmol/L Potassium (3.5-5.0) mmol/L Chloride (101-111) mmol/L Carbon Dioxide (22-32) mmol/L Anion Gap (2-11) mmol/L BUN (6-24) mg/dL Creatinine (0.67-1.17) mg/dL Est GFR ( Amer) (>60) Est GFR (Non-Af Amer) (>60) BUN/Creatinine Ratio (8-20) Glucose (70-100) mg/dL Lactic Acid (0.5-2.0) mmol/L Calcium (8.6-10.3) mg/dL Total Bilirubin (0.2-1.0) mg/dL AST (13-39) U/L ALT (7-52) U/L Alkaline Phosphatase (34-104) U/L C-Reactive Protein (< 5.00) mg/L Total Protein (6.4-8.9) g/dL Albumin (3.2-5.2) g/dL Globulin (2-4) g/dL Albumin/Globulin Ratio (1-3) Urine Color Yellow Urine Appearance Cloudy Urine pH 6.0 (5-9) Ur Specific [place] 1.014 (1.010-1.030) Urine Protein 1+(30 mg/dl) H (Negative) Urine Ketones 1+ H (Negative) Urine Blood 1+ H (Negative) Urine Nitrate Negative (Negative) Urine Bilirubin Negative (Negative) Urine Urobilinogen Negative (Negative) Ur Leukocyte Esterase Negative (Negative) Urine WBC (Auto) Trace(0-5/hpf) (Absent) Urine RBC (Auto) Trace(0-2/hpf) (Absent) Urine Bacteria Absent (Absent) Urine Glucose Negative (Negative) Assess/Plan/Problems-Billing Assessment: - Patient Problems (1) DVT (deep venous thrombosis) Current Visit: Yes Status: Acute Code(s): I82.409 - ACUTE EMBOLISM AND THOMBOS UNSP DEEP VN UNSP LOWER EXTREMITY SNOMED Code(s): 595375479 Comment: In setting of prolonged air/car travel would consider this an acute DVT. Continue rivaroxaban. Pt instructed to get rx for 20 mg dose rivaroxaban from his PCP in [place]. (2) Cellulitis Current Visit: Yes Status: Acute Code(s): L03.90 - CELLULITIS, UNSPECIFIED SNOMED Code(s): 476541528 Comment: Non-blanching deep red rash. He could have developed cellulitis via the psoriatic patch R lower leg. IV cefuroxime ordered. He received pip/ billie in the ED. Rash slowly improving. Pain virutally gone. No longer warmer than L leg. Edema virtually gone ANCA, RYLIE pending. Hep B&C neg. HIV Ab ordered. Continue prednisone in addition to cefuroxime. Discussed with Dr. Gay 07/26. (3) Psoriasis Current Visit: Yes Status: Acute Code(s): L40.9 - PSORIASIS, UNSPECIFIED SNOMED Code(s): 0355534 Comment: Mild, no tx needed at present. Status and Disposition: Discharge now. Pt will return home tomorrow, will arrive in [place] Friday AM and call his PCP promptly.
[2016-07-27] MEDS: predniSONE TAB* 10 MG PO SCH (08:43)
[2016-07-27] MEDS: Rivaroxaban TAB(*) 15 MG PO SCH (08:44)
[2016-07-27 10:22] VITALS: BP 134/83
== END 2016-07-27 09:35 | disposition home or self-care (01) ==
LOC: ED 11:57 → MED 14:39
PROVIDERS: ADMIT Hospitalist; ATTEND Internal Medicine
DX: I82.411 Acute embolism and thrombosis of right femoral vein (principal); L03.115 Cellulitis of right lower limb; L40.9 Psoriasis, unspecified
CPT/HCPCS: 36415; 80048; 80053; 81003; 81015; 83516; 83605; 85025; 85652; 86038; 86140; 86703; 86803; 87040; 87340; 96361; 96365; 96366; 96367; 99284; A9270-GY; G0378; J0697; J2543; J7512